=== PATIENT | female | born 1975 | race Caucasian/White ===

== ENCOUNTER 2018-10-21 11:32 | Observation (INO) ==
[2018-10-21 11:58] LABS: Baso # (Auto) 0.1 th/mm3 (0.0-0.2); Baso % (Auto) 0.5 % (0.0-2.0); Eos # (Auto) 0.2 th/mm3 (0.0-0.4); Eos % (Auto) 2.3 % (0.0-4.0); Hematocrit 39.1 % (35.0-46.0); Hemoglobin 13.3 gm/dL (11.6-15.3); Lymph # (Auto) 4.3 th/mm3 (1.0-4.8); Lymph % (Auto) 41.2 % (9.0-44.0); Mean Corpuscular HGB Conc 34.1 % (32.0-36.0); Mean Corpuscular Hemoglobin 30.8 pg (27.0-34.0); Mean Corpuscular Volume 90.4 fL (80.0-100.0); Mean Platelet Volume 7.5 fL (7.0-11.0); Mono # (Auto) 0.6 th/mm3 (0.0-0.9); Mono % (Auto) 5.6 % (0.0-8.0); Neut # (Auto) 5.3 th/mm3 (1.8-7.7); Neut % (Auto) 50.4 % (16.0-70.0); Platelet Count 311 th/mm3 (150-450); Red Blood Count 4.33 mil/mm3 (4.00-5.30); White Blood Count 10.5 th/mm3 (4.0-11.0)
--- NOTE | 2018-10-21 12:03 | ED ---
HPI General Chief complaint: Seizure Stated complaint: Poss Seizure Time Seen by Provider: 10/21/18 11:39 Source: patient and EMS Mode of arrival: EMS Limitations: no limitations History of Present Illness HPI narrative: 43-year-old female with history of hypertension, anxiety, brought in by ambulance from work after having a witnessed seizure-like episode. On arrival the patient is awake and alert. She denies history of seizures or family history of seizure disorders. She tells me she does not remember what happened to her today. According to EMS the patient had an episode at work where she became rigid, and had generalized tonic-clonic movements with foaming at the mouth. This lasted for about 30 minutes. When he arrived at the scene the patient seemed confused. The patient works in [employer]. She remembers going to work this morning. The next thing she remembers was being in the back of an ambulance. She denies fevers or recent illness. She does take Ativan for anxiety, however takes this as needed, and reports taking it may be 2 or 3 times per week. She drinks alcohol occasionally , not daily. She denies illicit drug use. No new medications or over-the- counter medications. According to EMS the patient was slowly lowered to the ground by 1 of her coworkers. Patient denies tongue biting or urinary incontinence during this episode. She did not sustain any injuries. Apart from feeling scared because of what happened to her, the patient denies any physical complaints. No headache. No paresthesias or motor deficits. No chest pain or dyspnea. No visual changes. Related Data Allergies Allergy/AdvReac Type Severity Reaction Status Date / Time acetaminophen AdvReac Mild GI UPSET Verified 10/21/18 11:38 hydrocodone AdvReac Mild GI UPSET Verified 10/21/18 11:38 hydromorphone AdvReac Mild HEADACHE; Verified 10/21/18 11:38 N/V Review of Systems ROS: all other systems reviewed are negative PMFSH Social History Social History Substance History: Active Abuse Second Hand Smoke Exposure: Yes Smoking Status: Current some day smoker Tobacco Type: Cigarettes How Often Do You Have a Drink Containing Alcohol: 2 to 4 times a month Recent Travel in [facility] within the Last 8 Weeks: No Recent Out of Country Travel within the Last 8 Weeks: No Exam Narrative Exam Narrative: GENERAL: Well-developed, well-nourished, awake, tearful, alert, appears anxious/nervous SKIN: Focused skin assessment warm/dry. HEAD: Atraumatic. Normocephalic. EYES: Pupils equal and round. No scleral icterus. No injection or drainage. ENT: No nasal bleeding or discharge. Mucous membranes pink and moist. NECK: Trachea midline. No JVD. CARDIOVASCULAR: Tachycardic, rate 140, regular. RESPIRATORY: No accessory muscle use. Clear to auscultation. Breath sounds equal bilaterally. GASTROINTESTINAL: Abdomen soft, non-tender, nondistended. MUSCULOSKELETAL: No obvious deformities. No clubbing. No cyanosis. No edema. NEUROLOGICAL: Awake and alert. No obvious cranial nerve deficits. Motor grossly within normal limits. Normal speech. PSYCHIATRIC: Tearful, appears anxious/nervous.; insight and judgment normal. Course Initial Documented Vital Signs Temperature 98.2 F 10/21/18 11:39 Pulse Rate 140 H 10/21/18 11:39 Respiratory Rate 25 H 10/21/18 11:39 Blood Pressure 174/97 H 10/21/18 11:39 Pulse Oximetry 97 10/21/18 11:39 Last Documented Vital Signs Temperature 98.2 F 10/21/18 15:11 Pulse Rate 118 H 10/21/18 15:11 Respiratory Rate 19 10/21/18 15:11 Blood Pressure 164/94 H 10/21/18 15:11 Pulse Oximetry 96 10/21/18 15:11 Medical Decision Making [facility] Narrative Medical decision making narrative: Vital signs reviewed. Patient presents with a heart rate of 140, sinus tachycardia. CBC is essentially unremarkable. CMP is remarkable for slightly elevated LFTs. TSH is 11. UA is suggestive of UTI. Patient was given 1 g of IV Rocephin. CT head: CONCLUSION:1. No acute intracranial abnormality. EKG: Sinus tachycardia, rate 122, normal axis, normal intervals, low QRS voltages in precordial leads, no acute ischemic abnormalities. The patient and the patient's family/friends were now at the bedside were made aware of all findings. The patient's boyfriend as well as her sister who is a critical care nurse of 17 years is at the bedside. The patient initially told me that she takes Ativan that is prescribed to her 1 mg about 2-3 times per week for anxiety. On reassessment the patient's sister tells me that she takes this medication on both days, and she has been out of it since last week. Patient cannot recall her last dose of this medication, but does say that she takes it as needed, and usually this is most days. I told her that this was different than what she had told me on arrival, and the patient tells me that she was more confused and delirious and does not recall presenting to the emergency department. She also tells me that she is beginning to have a dull posterior headache that radiates to her left parietal region. Patient may have had a withdrawal seizure from benzodiazepines. She will be admitted for further treatment and evaluation of new onset seizure, sinus tachycardia. Case discussed with hospitalist Dr. Knowles who will admit the patient to his service. Medical Screen Exam Complete: Yes Emergency Medical Condition: Yes Differential Diagnosis Differential Diagnosis: New-onset seizure, metabolic abnormality, intracranial abnormality, unlikely withdrawal seizure. Lab Data Result diagrams: 10/21/18 11:50 10/21/18 11:50 POC Results POC Urine Results Negative Lab Results 10/21/18 10/21/18 10/21/18 Range/Units 11:50 11:50 11:50 WBC 10.5 (4.0-11.0) th/mm3 RBC 4.33 (4.00-5.30) mil/mm3 Hgb 13.3 (11.6-15.3) gm/dL Hct 39.1 (35.0-46.0) % MCV 90.4 (80.0-100.0) fL MCH 30.8 (27.0-34.0) pg MCHC 34.1 (32.0-36.0) % RDW 13.0 (11.6-17.2) % Plt Count 311 (150-450) th/mm3 MPV 7.5 (7.0-11.0) fL Neut % (Auto) 50.4 (16.0-70.0) % Lymph % (Auto) 41.2 (9.0-44.0) % [place] % (Auto) 5.6 (0.0-8.0) % Eos % (Auto) 2.3 (0.0-4.0) % Baso % (Auto) 0.5 (0.0-2.0) % Neut # (Auto) 5.3 (1.8-7.7) th/mm3 Lymph # (Auto) 4.3 (1.0-4.8) th/mm3 [place] # (Auto) 0.6 (0.0-0.9) th/mm3 Eos # (Auto) 0.2 (0.0-0.4) th/mm3 Baso # (Auto) 0.1 (0.0-0.2) th/mm3 WBC Differential . Differential Comment Auto diff final PT 9.9 (9.8-11.6) sec INR 1.0 Ratio APTT 26.1 (23.4-31.7) sec Puncture Site Patient Temperature O2 Saturation (90-100) % ABG pH (7.380-7.420) ABG pCO2 (38-42) mmHg ABG pO2 (61-120) mmHg ABG HCO3 (22-26) mmol/L ABG O2 Content (12.0-20.0) Vol % ABG Base Excess (-2-2) mmol/L ABG Methemoglobin (0-2) % Tacho Test Hemoglobin (12.0-16.0) G/DL Carboxyhemoglobin (0-4) % Inspired O2 % Critical Value Sodium 138 (136-145) meq/L Potassium 4.4 (3.5-5.1) meq/L Chloride 105 (98-107) meq/L Carbon Dioxide 26.6 (21.0-32.0) meq/L Anion Gap 6 (5-15) meq/L BUN 9 (7-18) mg/dL Creatinine 0.82 (0.50-1.00) mg/dL Estimated GFR 76 L (>89) mL/min Random Glucose 180 H (74-106) mg/dL Calcium 8.3 L (8.5-10.1) mg/dL Total Bilirubin 0.2 (0.2-1.0) mg/dL AST 39 H (15-37) U/L ALT 79 H (10-53) U/L Alkaline Phosphatase 84 (45-117) U/L Total Protein 7.9 (6.4-8.2) g/dL Albumin 3.5 (3.4-5.0) g/dL TSH 11.100 H (0.358-3.740) uIU/mL Beta HCG, Quant (0-5) mIU/mL Urine Color (Yellw/Straw) Urine Clarity (Clear) Urine pH (5.0-8.5) Ur Specific [place] (1.002-1.035) Urine Protein (Neg-Trace) mg/dL Urine Glucose (UA) (Negative) mg/dL Urine Ketones (Negative) mg/dL Urine Occult Blood (Negative) Urine Nitrate (Negative) Urine Bilirubin (Negative) Urine Urobilinogen (Less than 2) mg/dL Ur Leukocyte Esterase (Negative) Urine RBC (0-3) /hpf Urine WBC (0-5) /hpf Ur Squamous Epith Cells (0-5) /hpf Urine Bacteria (None) /hpf Hyaline Casts (0-3) /lpf Urine Mucus (Occasional) /lpf Micro UA Comment Ur Microscopic Review Urine Culture Comments 10/21/18 10/21/18 10/21/18 Range/Units 11:50 12:59 14:38 WBC (4.0-11.0) th/mm3 RBC (4.00-5.30) mil/mm3 Hgb (11.6-15.3) gm/dL Hct (35.0-46.0) % MCV (80.0-100.0) fL MCH (27.0-34.0) pg MCHC (32.0-36.0) % RDW (11.6-17.2) % Plt Count (150-450) th/mm3 MPV (7.0-11.0) fL Neut % (Auto) (16.0-70.0) % Lymph % (Auto) (9.0-44.0) % [place] % (Auto) (0.0-8.0) % Eos % (Auto) (0.0-4.0) % Baso % (Auto) (0.0-2.0) % Neut # (Auto) (1.8-7.7) th/mm3 Lymph # (Auto) (1.0-4.8) th/mm3 [place] # (Auto) (0.0-0.9) th/mm3 Eos # (Auto) (0.0-0.4) th/mm3 Baso # (Auto) (0.0-0.2) th/mm3 WBC Differential Differential Comment PT (9.8-11.6) sec INR Ratio APTT (23.4-31.7) sec Puncture Site Left radial Patient Temperature 98.6 O2 Saturation 91 (90-100) % ABG pH 7.44 H (7.380-7.420) ABG pCO2 38 (38-42) mmHg ABG pO2 71 (61-120) mmHg ABG HCO3 26 (22-26) mmol/L ABG O2 Content 16.0 (12.0-20.0) Vol % ABG Base Excess 1.9 (-2-2) mmol/L ABG Methemoglobin 0.7 (0-2) % Tacho Test Present Hemoglobin 12.5 (12.0-16.0) G/DL Carboxyhemoglobin 1.6 (0-4) % Inspired O2 21 % Critical Value No Sodium (136-145) meq/L Potassium (3.5-5.1) meq/L Chloride (98-107) meq/L Carbon Dioxide (21.0-32.0) meq/L Anion Gap (5-15) meq/L BUN (7-18) mg/dL Creatinine (0.50-1.00) mg/dL Estimated GFR (>89) mL/min Random Glucose (74-106) mg/dL Calcium (8.5-10.1) mg/dL Total Bilirubin (0.2-1.0) mg/dL AST (15-37) U/L ALT (10-53) U/L Alkaline Phosphatase (45-117) U/L Total Protein (6.4-8.2) g/dL Albumin (3.4-5.0) g/dL TSH (0.358-3.740) uIU/mL Beta HCG, Quant Less than 1 (0-5) mIU/mL Urine Color Yellow (Yellw/Straw) Urine Clarity Hazy H (Clear) Urine pH 6.0 (5.0-8.5) Ur Specific [place] 1.014 (1.002-1.035) Urine Protein Negative (Neg-Trace) mg/dL Urine Glucose (UA) Negative (Negative) mg/dL Urine Ketones Negative (Negative) mg/dL Urine Occult Blood Moderate H (Negative) Urine Nitrate Positive H (Negative) Urine Bilirubin Negative (Negative) Urine Urobilinogen Less than 2 (Less than 2) mg/dL Ur Leukocyte Esterase Negative (Negative) Urine RBC 4 H (0-3) /hpf Urine WBC 6 H (0-5) /hpf Ur Squamous Epith Cells 1 (0-5) /hpf Urine Bacteria Moderate H (None) /hpf Hyaline Casts 5 (0-3) /lpf Urine Mucus Few H (Occasional) /lpf Micro UA Comment Culture indicated Ur Microscopic Review Not Reportable Urine Culture Comments Culture indicated Imaging Data Radiologist's impression: Head CT 10/21/18 11:47 CONCLUSION: 1. No acute intracranial abnormality. . . Discharge Plan Discharge Disposition Patient Disposition: ED Admit(ED Internal Use Only) Discharge Condition Condition: Stable Discharge Details Diagnosis: New onset seizure, Sinus tachycardia Physicians Team ED Provider: Leroy Morris Primary Care Provider: UNKNOWN, Status ED Status: With Doctor
[2018-10-21 12:14] LABS: Activated Partial Thrombo Time 26.1 sec (23.4-31.7); Prothrombin Time 9.9 sec (9.8-11.6)
[2018-10-21 12:24] LABS: Alkaline Phosphatase 84 U/L (45-117); Total Protein 7.9 g/dL (6.4-8.2)
[2018-10-21 12:31] LABS: Alanine Aminotransferase 79 U/L (10-53); Albumin 3.5 g/dL (3.4-5.0); Anion Gap 6 meq/L (5-15); Aspartate Aminotransferase 39 U/L (15-37); Blood Urea Nitrogen 9 mg/dL (7-18); Calcium 8.3 mg/dL (8.5-10.1); Carbon Dioxide 26.6 meq/L (21.0-32.0); Chloride 105 meq/L (98-107); Glomerular Filtration Rate 76 mL/min (>89); Glucose,Random 180 mg/dL (74-106); Potassium 4.4 meq/L (3.5-5.1); Sodium 138 meq/L (136-145)
[2018-10-21 13:28] LABS: Bacteria,Urine Moderate /hpf; Bilirubin,Urine Negative (Negative); Clarity,Urine Hazy (Clear); Color,Urine Yellow (Yellw/Straw); Glucose,Urine (UA) Negative (Negative); Hyaline Casts,Urine 5 /lpf (0-3); Leukocyte Esterase,Urine Negative (Negative); Mucus,Urine Few /lpf (Occasional); Nitrite,Urine Positive (Negative); Specific Gravity,Urine 1.014 (1.002-1.035); Squamous Epithelial Cell,Urine 1 /hpf (0-5)
--- NOTE | 2018-10-21 14:00 | CT ---
EXAM DATE: 10/21/2018 1:57 PM EST AGE/SEX: 43 years / Female INDICATIONS: Seizure, now confusion. CLINICAL DATA: This is the patient's initial encounter. Patient reports that signs and symptoms have been present for 1 day and indicates a pain score of 0/10. MEDICAL/SURGICAL HISTORY: . Anxiety. None. RADIATION DOSE: 56.35 CTDI (mGy) COMPARISON: No prior exams available for comparison. TECHNIQUE: CT of the head without contrast. Using automated exposure control and adjustment of the mA and/or kV according to patient size, radiation dose was kept as low as reasonably achievable to ob tain optimal diagnostic quality images. DICOM format image data is available electronically for revi ew and comparison. FINDINGS: Cerebrum: The ventricles are normal for age. No evidence of midline shift, mass lesion, hemorrhage o r acute infarction. No extraaxial fluid collections are seen. Posterior Fossa: The cerebellum and brainstem are intact. The 4th ventricle is midline. The cerebe llopontine angle is unremarkable. Extracranial: The visualized portion of the orbits is intact. Skull: The calvaria is intact. No evidence of skull fracture. CONCLUSION: 1. No acute intracranial abnormality. . . Electronically signed by: Giuseppe Zheng MD Board Certified Radiologist 10/21/2018 1:59 PM EST
[2018-10-21] MEDS ORDERED: Sod Chloride 0.9% Inj 1,000 ML IV.SIG SCH (14:30)
[2018-10-21 14:49] LABS: ABG Base Excess 1.9 mmol/L (-2-2); ABG PCO2 38 mmHg (38-42); ABG PO2 71 mmHg (61-120)
[2018-10-21 15:12] VITALS: O2SAT 96
[2018-10-21] MEDS ORDERED: Bisacodyl 10 MG Supp RECTAL PRN (15:37)
--- NOTE | 2018-10-21 15:46 | P.HPIM ---
History of Present Illness Primary Care Physician: UNKNOWN History of Present Illness: 43 yo F with h/o anxiety, HTN, who was brought in by EMS because of seizure. Patient does not know what happened. Hx obtained from ED chart and d/w ED physician who mentioned that patient had an observed seizure while at work. Seizure was described to be tonic clonic, with attendant foaming in the mouth. Patient has no history of seizures. She is on Lorazepam 1mg daily for anxiety which she had been taking except for the last 5 days since she wanted to stop the medication. She denies headaches, dizziness or lightheadedness. ROS is negative except as stated above. Patient's other home medication include Tramadol(She takes 200mg twice a day) , Elavil,Norvasc, Spironolactone the doses of which she does not know. Inpatient Certification Inpatient Certification: I certify that the inpatient services were ordered in accordance with Medicare regulations governing the order. This includes certification that hospital inpatient services are reasonable and necessary and in the case of services not specified as inpatient-only under 42 CFR 419.22(n), that they are appropriately provided as inpatient services in accordance to with the 2-midnight benchmark under 43 CFR 412.3(e) Estimated Total Length of Stay (Days): 2 Plans for Post Hospital Care: Home Review of Systems Review of Systems: all other systems reviewed are negative [facility] Medical History Medical History Anxiety (Acute) HBP (high blood pressure) (Acute) History of chronic pain (Acute) Surgical History Surgical History No history of previous surgery (Acute) Social History Social History Substance History: Active Abuse Second Hand Smoke Exposure: Yes Smoking Status: Current some day smoker Tobacco Type: Cigarettes How Often Do You Have a Drink Containing Alcohol: 2 to 4 times a month Recent Travel in [facility] within the Last 8 Weeks: No Recent Out of Country Travel within the Last 8 Weeks: No Substance Abuse Detail Marijuana: Substance Use Status: Active Route Used Substance Abuse: Inhalation Reason for Use: Calm Down and Feels Good Immunization History Tetanus Immunization: >5 Years Medications and Allergies Allergies Allergy/AdvReac Type Severity Reaction Status Date / Time acetaminophen AdvReac Mild GI UPSET Verified 10/21/18 11:38 hydrocodone AdvReac Mild GI UPSET Verified 10/21/18 11:38 hydromorphone AdvReac Mild HEADACHE; Verified 10/21/18 11:38 N/V Home Medications Medication Instructions Recorded Confirmed Type lorazepam [Ativan] 1 mg PO BID 10/21/18 10/21/18 History tramadol 50 mg PO QID 10/21/18 10/21/18 History Active Medications: Active Medications Al Hydroxide/Mg Hydroxide (Milk Of Magnesia Liq) 30 ml PO Q12H PRN PRN Reason: Mild Constipation Bisacodyl (Dulcolax Supp) 10 mg RECTAL DAILY PRN PRN Reason: SEVERE CONSITIPATION Lactulose (Lactulose Liq) 30 ml PO DAILY PRN PRN Reason: SEVERE CONSITIPATION Senna/Docusate Sodium (Hyacinth-Colace) 1 tab PO BID ELIOT Sennosides (Senokot) 17.2 mg PO Q12H PRN PRN Reason: Moderate Constipation Sodium Chloride (Ns Flush) 2 ml IV.FLUSH BID ELIOT Sodium Chloride (Ns Flush) 2 ml IV.FLUSH PRN PRN PRN Reason: FLUSH AFTER USING IV ACCESS Physical Exam Vital signs: Vital Signs 10/21/18 11:39 10/21/18 15:11 Temperature 98.2 F 98.2 F Pulse Rate 140 H 118 H Respiratory Rate 25 H 19 Blood Pressure 174/97 H 164/94 H Pulse Oximetry 97 96 Intake & Output 10/20/18 10/21/18 10/21/18 18:59 06:59 18:59 Intake Total 100 / 100 Balance 100 / 100 Weight 122.47 kg Intake: IV 100 / 100 Rocephin Inj 1,000 MG In NS Inj 100 / 100 100 ML @ 200 mls/hr IV.SIG ONCE ONE Rx#:[id number] Narrative: GENERAL: obese young lady not in distress. HEENT:not pale,anicteric NECK:no JVD CARDIOVASCULAR: Regular rate and rhythm without murmurs, gallops, or rubs. RESPIRATORY: Clear to auscultation. Breath sounds equal bilaterally. No wheezes , rales, or rhonchi. GASTROINTESTINAL: Abdomen soft, non-tender, nondistended. Normal active bowel sounds MUSCULOSKELETAL: Extremities without clubbing, cyanosis, or edema. NEURO: Alert & Oriented x4 to person, place, time, situation. Moves all ext x4 SKIN:tattoos noted. Results Labs CBC & Chem 7: 10/21/18 11:50 10/21/18 11:[address] 10/21/18 11:47 CONCLUSION: 1. No acute intracranial abnormality. . . Caprini VTE Risk Assessment Caprini VTE Risk Assessment: No/Low Risk (score <= 1) Caprini Risk Assessment Model: Point Value = 1 Point Value = 2 Point Value = 3 Point Value = 5 Age 41-60 Minor surgery BMI > 25 kg/m2 Swollen legs Varicose veins or History of unexplained or recurrent spontaneous Oral contraceptives or hormone replacement Sepsis (< 1 month) Serious lung disease, including pneumonia (< 1 month) Abnormal pulmonary function Acute myocardial infarction Congestive heart failure (< 1 month) History of inflammatory bowel disease Medical patient at bed rest Age 61-74 Arthroscopic surgery Major open surgery (> 45 min) Laparoscopic surgery (> 45 min) Malignancy Confined to bed (> 72 hours) Immobilizing plaster cast Central venous access Age >= 75 History of VTE Family history of VTE Factor V Leiden Prothrombin [id number] Lupus anticoagulant Anticardiolipin antibodies Elevated serum homocysteine Heparin-induced thrombocytopenia Other congenital or acquired thrombophilia Stroke (< 1 month) Elective arthroplasty Hip, pelvis, or leg fracture Acute spinal cord injury (< 1 month) Prophylaxis Regimen: Total Risk Factor Score Risk Level Prophylaxis Regimen 0-1 Low Early ambulation 2 Moderate Order ONE of the following: *Sequential Compression Device (SCD) *Heparin 5000 units SQ BID 3-4 Higher Order ONE of the following medications: *Heparin 5000 units SQ TID *Enoxaparin/Lovenox 40 mg SQ daily (WT < 150 kg, CrCl > 30 mL/min) *Enoxaparin/Lovenox 30 mg SQ daily (WT < 150 kg, CrCl > 10-29 mL/min) *Enoxaparin/Lovenox 30 mg SQ BID (WT < 150 kg, CrCl > 30 mL/min) AND/OR *Sequential Compression Device (SCD) 5 or more Highest Order ONE of the following medications: *Heparin 5000 units SQ TID (Preferred with Epidurals) *Enoxaparin/Lovenox 40 mg SQ daily (WT < 150 kg, CrCl > 30 mL/min) *Enoxaparin/Lovenox 30 mg SQ daily (WT < 150 kg, CrCl > 10-29 mL/min) *Enoxaparin/Lovenox 30 mg SQ BID (WT < 150 kg, CrCl > 30 mL/min) AND *Sequential Compression Device (SCD) Assessment and Plan Plan 43 yo F with h/o anxiety, HTN, who was brought in after an observed seizure. Seizure- likely due to Benzo withdrawal. Patient has not taken Lorazepam for 5 days. received Ativan in ER. Monitor, keep on Seizure precautions. Resume on usual dose of lorazepam. HTN BP uncontrolled- Resume Norvasc and Spironolactone Anxiety- resume Lorazepam as above. Order meds once med rec is complete. dvt ppx-low risk, ambulate.
[2018-10-21] MEDS ORDERED: amLODIPine 10 MG Tablet PO ONE (16:01)
[2018-10-21 16:22] VITALS: TEMP 97.9
[2018-10-21 17:54] VITALS: PULSE 90
[2018-10-21] MEDS ORDERED: Senna/Docusate Sodium 8.6/50 MG Tablet PO SCH (21:00)
[2018-10-21 23:27] VITALS: BP 124/62; RESP 18
[2018-10-21 23:50] LABS: Amphetamine Screen,Urine Neg (Neg); Barbiturate Screen,Urine Neg (Neg); Cannabinoid Screen,Urine Neg (Neg); Cocaine Screen,Urine Neg (Neg)
[2018-10-21 23:51] LABS: Opiate Screen,Urine Neg (Neg)
--- NOTE | 2018-10-22 07:51 | P.DS ---
DS: Providers Date of admission: 10/21/18 15:17 Primary care physician: UNKNOWN Brief History from admission: 43 yo F with h/o anxiety, HTN, who was brought in by EMS because of seizure. Patient does not know what happened. Hx obtained from ED chart and d/w ED physician who mentioned that patient had an observed seizure while at work. Seizure was described to be tonic clonic, with attendant foaming in the mouth. Patient has no history of seizures. She is on Lorazepam 1mg daily for anxiety which she had been taking except for the last 5 days since she wanted to stop the medication. She denies headaches, dizziness or lightheadedness. ROS is negative except as stated above. Patient's other home medication include Tramadol(She takes 200mg twice a day) , Elavil,Norvasc, Spironolactone the doses of which she does not know. DS: Summary Patient was admitted to the observation unit, did not have any seizure activity during her stay. Her usual medication were resumed. Patient left against medical advice overnight. Time Spent with Patient Total time spent providing and/or coordinating discharge services: Results Labs on day of discharge: Labs from last 24 hours 10/21/18 10/21/18 10/21/18 14:38 12:59 12:59 WBC RBC Hgb Hct MCV MCH MCHC RDW Plt Count MPV Neut % (Auto) Lymph % (Auto) [place] % (Auto) Eos % (Auto) Baso % (Auto) Neut # (Auto) Lymph # (Auto) [place] # (Auto) Eos # (Auto) Baso # (Auto) WBC Differential Differential Comment PT INR APTT Puncture Site Left radial Patient Temperature 98.6 O2 Saturation 91 ABG pH 7.44 H ABG pCO2 38 ABG pO2 71 ABG HCO3 26 ABG O2 Content 16.0 ABG Base Excess 1.9 ABG Methemoglobin 0.7 Tacho Test Present Hemoglobin 12.5 Carboxyhemoglobin 1.6 Inspired O2 21 Critical Value No Sodium Potassium Chloride Carbon Dioxide Anion Gap BUN Creatinine Estimated GFR Random Glucose Calcium Total Bilirubin AST ALT Alkaline Phosphatase Total Protein Albumin TSH Beta HCG, Quant Urine Color Yellow Urine Clarity Hazy H Urine pH 6.0 Ur Specific [place] 1.014 Urine Protein Negative Urine Glucose (UA) Negative Urine Ketones Negative Urine Occult Blood Moderate H Urine Nitrate Positive H Urine Bilirubin Negative Urine Urobilinogen Less than 2 Ur Leukocyte Esterase Negative Urine RBC 4 H Urine WBC 6 H Ur Squamous Epith Cells 1 Urine Bacteria Moderate H Hyaline Casts 5 Urine Mucus Few H Micro UA Comment Culture indicated Ur Microscopic Review Not Reportable Urine Culture Comments Culture indicated Urine Opiates Screen Neg Ur Barbiturates Screen Neg Ur Amphetamines Screen Neg U Benzodiazepines Scrn Neg Urine Cocaine Screen Neg U Cannabinoids Screen Neg 10/21/18 10/21/18 10/21/18 11:50 11:50 11:50 WBC RBC Hgb Hct MCV MCH MCHC RDW Plt Count MPV Neut % (Auto) Lymph % (Auto) [place] % (Auto) Eos % (Auto) Baso % (Auto) Neut # (Auto) Lymph # (Auto) [place] # (Auto) Eos # (Auto) Baso # (Auto) WBC Differential Differential Comment PT 9.9 INR 1.0 APTT 26.1 Puncture Site Patient Temperature O2 Saturation ABG pH ABG pCO2 ABG pO2 ABG HCO3 ABG O2 Content ABG Base Excess ABG Methemoglobin Tacho Test Hemoglobin Carboxyhemoglobin Inspired O2 Critical Value Sodium 138 Potassium 4.4 Chloride 105 Carbon Dioxide 26.6 Anion Gap 6 BUN 9 Creatinine 0.82 Estimated GFR 76 L Random Glucose 180 H Calcium 8.3 L Total Bilirubin 0.2 AST 39 H ALT 79 H Alkaline Phosphatase 84 Total Protein 7.9 Albumin 3.5 TSH 11.100 H Beta HCG, Quant Less than 1 Urine Color Urine Clarity Urine pH Ur Specific [place] Urine Protein Urine Glucose (UA) Urine Ketones Urine Occult Blood Urine Nitrate Urine Bilirubin Urine Urobilinogen Ur Leukocyte Esterase Urine RBC Urine WBC Ur Squamous Epith Cells Urine Bacteria Hyaline Casts Urine Mucus Micro UA Comment Ur Microscopic Review Urine Culture Comments Urine Opiates Screen Ur Barbiturates Screen Ur Amphetamines Screen U Benzodiazepines Scrn Urine Cocaine Screen U Cannabinoids Screen 10/21/18 11:50 WBC 10.5 RBC 4.33 Hgb 13.3 Hct 39.1 MCV 90.4 MCH 30.8 MCHC 34.1 RDW 13.0 Plt Count 311 MPV 7.5 Neut % (Auto) 50.4 Lymph % (Auto) 41.2 [place] % (Auto) 5.6 Eos % (Auto) 2.3 Baso % (Auto) 0.5 Neut # (Auto) 5.3 Lymph # (Auto) 4.3 [place] # (Auto) 0.6 Eos # (Auto) 0.2 Baso # (Auto) 0.1 WBC Differential . Differential Comment Auto diff final PT INR APTT Puncture Site Patient Temperature O2 Saturation ABG pH ABG pCO2 ABG pO2 ABG HCO3 ABG O2 Content ABG Base Excess ABG Methemoglobin Tacho Test Hemoglobin Carboxyhemoglobin Inspired O2 Critical Value Sodium Potassium Chloride Carbon Dioxide Anion Gap BUN Creatinine Estimated GFR Random Glucose Calcium Total Bilirubin AST ALT Alkaline Phosphatase Total Protein Albumin TSH Beta HCG, Quant Urine Color Urine Clarity Urine pH Ur Specific [place] Urine Protein Urine Glucose (UA) Urine Ketones Urine Occult Blood Urine Nitrate Urine Bilirubin Urine Urobilinogen Ur Leukocyte Esterase Urine RBC Urine WBC Ur Squamous Epith Cells Urine Bacteria Hyaline Casts Urine Mucus Micro UA Comment Ur Microscopic Review Urine Culture Comments Urine Opiates Screen Ur Barbiturates Screen Ur Amphetamines Screen U Benzodiazepines Scrn Urine Cocaine Screen U Cannabinoids Screen Impressions ITS Impressions Head CT 10/21/18 11:47 CONCLUSION: 1. No acute intracranial abnormality. . . Discharge Plan Discharge Disposition Patient Disposition: 07 Against Medical Advice Discharge Condition Condition: Stable Discharge Order Discharge Orders: AMA Discharge (Routine); Ordered 10/21/18 Ordered By: Carlie Johnston Team Primary Care Provider: SULEMAN, Attending Provider: Aracely Knowles Rxs /Orders / Referrals /Forms Prescriptions: No Action tramadol 50 mg Tablet 50 mg PO QID RF: 0 lorazepam [Ativan] 1 mg Tablet 1 mg PO BID RF: 0 Referrals: UNKNOWN, [Primary Care Provider] - See Instructions Status ED Status: Left Department Discharge Information Discharge Date/Time: 10/21/18 22:00
--- NOTE | 2018-10-22 22:23 | ECG ---
Date Performed: 10/21/2018 Time Performed: 14:03:51 PTAGE: 43 years EKG: SINUS TACHYCARDIA LOW QRS VOLTAGE IN PRECORDIAL LEADS ABNORMAL RHYTHM ECG NO PREVIOUS TRACING DOCTOR: Sonu Houston Interpretating Date/Time 10/22/2018 22:22:46
== END 2018-10-21 22:00 | disposition left against medical advice (07) ==
LOC: NEPE 11:32 → NEDH 15:17 → INTOOBSV 15:17 → NEDA 15:17 → NEDH 19:54 → UNDODISIN 22:00
PROVIDERS: ADMIT Hospitalist; ATTEND Hospitalist
CPT/HCPCS: 36600; 70450; 80053; 80307; 81001; 82805; 84443; 84702; 84703; 85025; 85610; 85730; 87077; 87086; 87186; 90765; 90775; 93005; 96365; 96375; 99285; G0378; J0696; J2060; J7030